=== PATIENT | female | born 1975 | race Caucasian/White ===

== ENCOUNTER 2018-06-11 04:42 | Inpatient (IN) | payer BC, MEDICAID ==
[~2018-06-11] VITALS: Ht 162.6 cm; Wt 95.0 kg
[2018-06-11] MEDS ORDERED: SODIUM CHLORIDE 0.9% 1,000 ML IV ONE (05:03)
--- NOTE | 2018-06-11 05:05 | NUR ---
FIRST CONTACT WITH PT. PT HAD LASER SX FOR KIDNEY STONE REMOVAL AND STENT PLACED AT 1100 YESTERDAY. PT STATED TODAY HAVING PAIN ON RIGHT FLANK WITH N/V. HAVING PAIN ON URINATION. PT'S AOX4. RESPS EVEN AND UNLABORED. BP/SPO2 MONITORS IN PLACE. CALL LIGHT WITHIN REACH. PA AT BEDSIDE TO ASSESS AT THIS TIME.
[2018-06-11] MEDS ORDERED: MORPHINE SULFATE 4 MG/ML, 1ML ONE ×2 (05:08→07:34)
[2018-06-11] MEDS ORDERED: ONDANSETRON 2MG/ML, 2ML ONE (05:08)
[2018-06-11] MEDS ORDERED: ONDANSETRON 2MG/ML, 2ML IVPush ONE (05:30)
[2018-06-11] MEDS ORDERED: SODIUM CHLORIDE FLUSH 10ML SYR IVF ONE (05:30)
[2018-06-11] MEDS: MORPHINE SULFATE 4 MG/ML, 1ML IVPush PRN ×2 (05:33→07:38)
[2018-06-11 05:36] LABS: BASOPHILS # (AUTO) 0.01 x10^3/uL (0-0.1); BASOPHILS % (AUTO) 0 % (0-1); EOSINOPHILS # (AUTO) 0.03 x10^3/uL (0-0.4); EOSINOPHILS % (AUTO) 0 % (1-7); LYMPHOCYTES # (AUTO) 1.33 x10^3/uL (1-3.4); LYMPHOCYTES % (AUTO) 14 % (22-44); MD NO; MEAN CORPUSCULAR HEMOGLOBIN 31.5 pg (27.0-34.8); MEAN CORPUSCULAR HGB CONC 34.1 g/dL (32.4-35.8); MEAN CORPUSCULAR VOLUME 92.5 fL (80-100); MEAN PLATELET VOLUME 9.5 fL (7.4-10.4); MONOCYTES # (AUTO) 0.54 x10^3/uL (0.2-0.8); MONOCYTES % (AUTO) 6 % (2-9); NEUTROPHILS # (AUTO) 7.45 x10^3/uL (1.8-6.8); NEUTROPHILS % (AUTO) 80 % (42-75); PLATELET COUNT 229 x10^3/uL (130-400); RED BLOOD COUNT 4.44 x10^6/uL (3.82-5.3); RED CELL DISTRIBUTION WIDTH 13.3 % (9.6-15.2)
--- NOTE | 2018-06-11 05:37 | NUR ---
PT MEDICATED PER EMAR. PT TOLERATED WELL.
[2018-06-11 05:44] LABS: ANION GAP 9 mmol/L (5-15); CHLORIDE 108 mmol/L (98-107); CREATININE 0.91 mg/dL (0.55-1.02)
--- NOTE | 2018-06-11 05:47 | NUR ---
PT STRAIGHT CATH'D USING STERILE TECHNIQUE. THIS RN WALKED TO LAB FOR UA.
--- NOTE | 2018-06-11 05:48 | NUR ---
PT IN US NOW.
[2018-06-11 05:49] LABS: ALKALINE PHOSPHATASE 53 U/L (45-117); BILIRUBIN,TOTAL 0.8 mg/dL (0.2-1.0); TOTAL PROTEIN 7.4 g/dL (6.4-8.2)
[2018-06-11] MEDS ORDERED: ATOR20TA37 PO (05:49)
[2018-06-11] MEDS ORDERED: ALBU0.63 NEB (05:49)
[2018-06-11] MEDS ORDERED: CITA20TA6 PO (05:50)
[2018-06-11] MEDS ORDERED: CETI10TA18 PO (05:50)
[2018-06-11] MEDS ORDERED: LISI-170 PO (05:51)
[2018-06-11] MEDS ORDERED: HYDR-3237 PO (05:51)
[2018-06-11] MEDS ORDERED: METF500T9 PO (05:52)
[2018-06-11] MEDS ORDERED: OXYB10TA PO (05:52)
[2018-06-11] MEDS ORDERED: PHEN-582 PO (05:53)
[2018-06-11] MEDS ORDERED: OXYC5CAP2 PO (05:53)
[2018-06-11] MEDS ORDERED: POLY17PO29 PO (05:55)
[2018-06-11] MEDS ORDERED: SUMA100T4 PO (05:55)
[2018-06-11 05:56] LABS: CULTURE INDICATED? YES; MICROSCOPIC INDICATED
--- NOTE | 2018-06-11 06:02 | NUR ---
PT BACK TO ROOM NOW.
[2018-06-11 06:05] LABS: ALANINE AMINOTRANSFERASE 59 U/L (12-78)
--- NOTE | 2018-06-11 06:09 | NUR ---
PT'S PAIN LEVEL IS 4/10 AT THIS TIME.
--- NOTE | 2018-06-11 07:03 | NUR ---
report given to rhett jamison.
--- NOTE | 2018-06-11 07:38 | NUR ---
REC BS REPORT PT RESTING A04 UP TO BS FOR UA IN URINAL PT STABLE PILLOW PROVIDED AND FLUIDS
--- NOTE | 2018-06-11 07:38 | NUR ---
Danay bourne in EDM - 06/11/18 at 0740 by NAZ REC BS REPORT PT RESTING A04 UP TO BS FOR UA IN URINAL PT STABLE PILLOW PROVIDED AND FLUIDS
--- NOTE | 2018-06-11 07:40 | NUR ---
REC BS REPORT PT REPORTS INCREASING PAIN AND MEDS GIVEN PER ORDERS
--- NOTE | 2018-06-11 08:10 | NUR ---
CALLED REPORT TO THE FLOOR
[2018-06-11 08:29] VITALS: BP 118/72
[2018-06-11] MEDS ORDERED: POLYETHYLENE GLYCOL 17 GM PACKET PO PRN (08:30)
[2018-06-11] MEDS ORDERED: ALBUTEROL SULFATE 2.5 MG/3 ML NEB PRN (08:30)
[2018-06-11] MEDS ORDERED: hydrALAzine 20 MG/ML, 1ML IVPush PRN (08:30)
[2018-06-11] MEDS: TEMPLATE NON-FORMULARY MED. (Oxybutynin Chloride** (Oxybutynin Chloride Er**) 10 MG) PO SCH (09:00)
[2018-06-11] MEDS: SUMATRIPTAN 100 MG TABLET PO SCH ×2 (09:00→23:58)
[2018-06-11 09:05] LABS: HEMOGLOBIN A1C 6.4 % (4.2-6.3)
[2018-06-11] MEDS: SODIUM CHLORIDE 0.9% 1,000 ML IV SCH ×2 (09:49→22:48)
[2018-06-11] MEDS: PHENAZOPYRIDINE 100 MG TABLET PO SCH ×3 (09:49→20:55)
[2018-06-11] MEDS: CETIRIZINE 10 MG TABLET PO SCH (09:49)
[2018-06-11] MEDS: CITALOPRAM 20 MG TABLET PO SCH (09:49)
[2018-06-11] MEDS: INSULIN LISPRO 100 UNITS/ML, PEN SQ-INSULIN SCH ×3 (11:00→20:55)
[2018-06-11] MEDS: morphine SULFATE 10 MG/ML, 1ML IVPush PRN ×4 (11:37→22:46)
[2018-06-11] MEDS: ONDANSETRON 2MG/ML, 2ML IVPush PRN ×2 (11:37→19:04)
[2018-06-11 14:45] VITALS: BP 87/53
[2018-06-11] MEDS: LISINOPRIL 20 MG TABLET PO SCH (20:55)
[2018-06-11] MEDS: ATORVASTATIN 20 MG TABLET PO SCH (20:55)
[2018-06-11 21:59] VITALS: BP 117/68
[2018-06-12 01:22] VITALS: BP 116/73
[2018-06-12] MEDS: morphine SULFATE 10 MG/ML, 1ML IVPush PRN ×2 (02:51→06:45)
[2018-06-12 05:23] LABS: BASOPHILS # (AUTO) 0.03 x10^3/uL (0-0.1); BASOPHILS % (AUTO) 1 % (0-1); EOSINOPHILS # (AUTO) 0.16 x10^3/uL (0-0.4); EOSINOPHILS % (AUTO) 3 % (1-7); LYMPHOCYTES # (AUTO) 1.82 x10^3/uL (1-3.4); LYMPHOCYTES % (AUTO) 33 % (22-44); MD NO; MEAN CORPUSCULAR HGB CONC 33.9 g/dL (32.4-35.8); MEAN CORPUSCULAR VOLUME 91.6 fL (80-100); MEAN PLATELET VOLUME 8.8 fL (7.4-10.4); MONOCYTES # (AUTO) 0.42 x10^3/uL (0.2-0.8); MONOCYTES % (AUTO) 8 % (2-9); NEUTROPHILS # (AUTO) 3.09 x10^3/uL (1.8-6.8); NEUTROPHILS % (AUTO) 56 % (42-75); PLATELET COUNT 162 x10^3/uL (130-400); RED BLOOD COUNT 3.98 x10^6/uL (3.82-5.3); RED CELL DISTRIBUTION WIDTH 13.2 % (9.6-15.2)
[2018-06-12 05:47] LABS: CALCIUM 8.4 mg/dL (8.5-10.1); CHLORIDE 111 mmol/L (98-107)
[2018-06-12 06:03] LABS: ALANINE AMINOTRANSFERASE 57 U/L (12-78); ALBUMIN 3.5 g/dL (3.4-5.0); ALKALINE PHOSPHATASE 45 U/L (45-117); ANION GAP 4 mmol/L (5-15); BILIRUBIN,TOTAL 0.4 mg/dL (0.2-1.0); CREATININE 0.88 mg/dL (0.55-1.02); TOTAL PROTEIN 6.4 g/dL (6.4-8.2)
[2018-06-12] MEDS: INSULIN LISPRO 100 UNITS/ML, PEN SQ-INSULIN SCH ×4 (06:39→20:55)
[2018-06-12] MEDS: ONDANSETRON 2MG/ML, 2ML IVPush PRN ×2 (06:45→13:40)
[2018-06-12] MEDS: CETIRIZINE 10 MG TABLET PO SCH (08:58)
[2018-06-12] MEDS: PHENAZOPYRIDINE 100 MG TABLET PO SCH ×3 (08:58→20:52)
[2018-06-12] MEDS: CITALOPRAM 20 MG TABLET PO SCH (08:58)
[2018-06-12] MEDS: TEMPLATE NON-FORMULARY MED. (Oxybutynin Chloride** (Oxybutynin Chloride Er**) 10 MG) PO SCH (09:00)
[2018-06-12 10:08] VITALS: BP 115/68
[2018-06-12] MEDS ORDERED: CIPROFLOXACIN 500 MG TABLET PO SCH (11:00)
[2018-06-12] MEDS: SUMATRIPTAN 100 MG TABLET PO SCH (12:10)
[2018-06-12] MEDS: SODIUM CHLORIDE 0.9% 1,000 ML IV SCH (12:41)
[2018-06-12 14:15] VITALS: BP 118/68
[2018-06-12 19:47] VITALS: BP 135/76
[2018-06-12] MEDS: ATORVASTATIN 20 MG TABLET PO SCH (20:52)
[2018-06-12] MEDS: LISINOPRIL 20 MG TABLET PO SCH (20:53)
[2018-06-13] MEDS: SODIUM CHLORIDE 0.9% 1,000 ML IV SCH ×2 (00:10→05:10)
[2018-06-13 02:41] VITALS: BP 129/78
[2018-06-13 05:35] LABS: BASOPHILS # (AUTO) 0.02 x10^3/uL (0-0.1); BASOPHILS % (AUTO) 1 % (0-1); EOSINOPHILS # (AUTO) 0.23 x10^3/uL (0-0.4); EOSINOPHILS % (AUTO) 5 % (1-7); LYMPHOCYTES # (AUTO) 1.61 x10^3/uL (1-3.4); LYMPHOCYTES % (AUTO) 34 % (22-44); MD NO; MEAN CORPUSCULAR HEMOGLOBIN 30.8 pg (27.0-34.8); MEAN CORPUSCULAR HGB CONC 33.6 g/dL (32.4-35.8); MEAN CORPUSCULAR VOLUME 91.9 fL (80-100); MEAN PLATELET VOLUME 9.2 fL (7.4-10.4); MONOCYTES # (AUTO) 0.35 x10^3/uL (0.2-0.8); MONOCYTES % (AUTO) 7 % (2-9); NEUTROPHILS # (AUTO) 2.56 x10^3/uL (1.8-6.8); NEUTROPHILS % (AUTO) 54 % (42-75); PLATELET COUNT 163 x10^3/uL (130-400); RED BLOOD COUNT 4.14 x10^6/uL (3.82-5.3); RED CELL DISTRIBUTION WIDTH 12.7 % (9.6-15.2)
[2018-06-13 05:44] LABS: CHLORIDE 108 mmol/L (98-107)
[2018-06-13 05:55] LABS: ALANINE AMINOTRANSFERASE 55 U/L (12-78); ALBUMIN 3.5 g/dL (3.4-5.0); ALKALINE PHOSPHATASE 55 U/L (45-117); ANION GAP 6 mmol/L (5-15); BILIRUBIN,TOTAL 0.8 mg/dL (0.2-1.0); CALCIUM 8.3 mg/dL (8.5-10.1); CREATININE 0.82 mg/dL (0.55-1.02); TOTAL PROTEIN 6.7 g/dL (6.4-8.2)
[2018-06-13] MEDS: INSULIN LISPRO 100 UNITS/ML, PEN SQ-INSULIN SCH (07:00)
[2018-06-13 07:42] VITALS: BP 131/78
[2018-06-13] MEDS: CITALOPRAM 20 MG TABLET PO SCH (08:44)
[2018-06-13] MEDS: CETIRIZINE 10 MG TABLET PO SCH (08:44)
[2018-06-13] MEDS: PHENAZOPYRIDINE 100 MG TABLET PO SCH (08:44)
[2018-06-13] MEDS: TEMPLATE NON-FORMULARY MED. (Oxybutynin Chloride** (Oxybutynin Chloride Er**) 10 MG) PO SCH (09:00)
[2018-06-13 09:32] VITALS: BP 115/73
== END 2018-06-13 10:12 | disposition home or self-care (01) | DRG 392 ==
LOC: ED 05:12 → EDIP 07:29 → 4NOR 08:37 → DCLOUNGE 06-13 10:00
PROVIDERS: ADMIT Internal Medicine; ATTEND Internal Medicine
PROC: 0HQ0XZZ Repair Scalp Skin, External Approach (ICD-10-PCS; principal; 2018-06-11)
PROC: 0T9B70Z Drainage of Bladder with Drainage Device, Via Natural or Artificial Opening (ICD-10-PCS; 2018-06-11)
DX: R11.2 Nausea with vomiting, unspecified (principal); G89.18 Other acute postprocedural pain; I10 Essential (primary) hypertension; F32.9 Major depressive disorder, single episode, unspecified; E78.5 Hyperlipidemia, unspecified; S01.81XA Laceration without foreign body of other part of head, initial encounter; X58.XXXA Exposure to other specified factors, initial encounter; E11.9 Type 2 diabetes mellitus without complications; R31.0 Gross hematuria; K76.0 Fatty (change of) liver, not elsewhere classified; Z87.442 Personal history of urinary calculi; Y93.89 Activity, other specified; Y99.8 Other external cause status; Z88.0 Allergy status to penicillin; Z88.1 Allergy status to other antibiotic agents; Z91.013 Allergy to seafood
CPT/HCPCS: 36415; 76770; 80053; 81001; 82962; 83036; 83690; 84703; 85025; 87086; 96374; 96375; 99285; G0378; J2405; J2270; J7030